=== PATIENT | female | born 1965 | race Two or more races ===

== ENCOUNTER 2018-01-23 07:40 | Emergency (ER) | payer OTHER ==
[~2018-01-23] VITALS: Ht 175.3 cm; Wt 71.7 kg
[2018-01-23 07:49] VITALS: BP 148/87
[2018-01-23] MEDS ORDERED: IBUPROFEN 600 MG TABLET PO ONE ×2 (08:39→09:00)
== END 2018-01-23 09:13 | disposition home or self-care (01) ==
LOC: ER 07:42
DX: S46.092A Other injury of muscle(s) and tendon(s) of the rotator cuff of left shoulder, initial encounter (principal); Z88.0 Allergy status to penicillin; X58.XXXA Exposure to other specified factors, initial encounter; Y93.89 Activity, other specified; Y92.89 Other specified places as the place of occurrence of the external cause; Y99.8 Other external cause status
CPT/HCPCS: 73030; 93005; 99284; A4606; Z7610